=== PATIENT | female | born 1990 | race Caucasian/White ===

== ENCOUNTER 2017-01-29 19:00 | Emergency (ER) | payer OTHER ==
[2017-01-29 19:06] VITALS: BP 140/70; PULSE 78; RESP 16; TEMP 98.4; O2SAT 98
--- NOTE | 2017-01-29 19:43 | ED PDOC ---
HPI: Back Time Seen by Provider: 01/29/17 19:08 Chief Complaint (Nursing): Back Pain Chief Complaint (Provider): Flank pain History Per: Patient, [employer] (#[id number]) History/Exam Limitations: no limitations Onset/Duration Of Symptoms: Days (x 1) Current Symptoms Are (Timing): Still Present Quality Of Discomfort: Stabbing Additional Complaint(s): Alexia is a 26 y/o female who presents to the ED complaining of left flank pain , since 3:30 AM this morning. Took Ibuprofen around 6AM, with some relief. About 1 hour ago, she developed nausea and her pain worsened, now described as a stabbing sensation. Denies dysuria, frequency, fever, and cough. PMD: Provider TBD Past Medical History Reviewed: Historical Data, Nursing Documentation, Vital Signs Vital Signs: Last Vital Signs Temp 98.4 F 01/29/17 19:03 Pulse 78 01/29/17 19:03 Resp 16 01/29/17 19:03 BP 140/70 01/29/17 19:03 Pulse Ox 98 01/29/17 19:03 - Medical History PMH: No Chronic Diseases - Surgical History Surgical History: No Surg Hx - Family History Family History: States: Unknown Family Hx - Home Medications Home Medications: Ambulatory Orders Medication Instructions Recorded Meclizine [Meclizine*] 25 mg PO Q8 PRN #21 tab 08/04/14 Meclizine HCl [Antivert/25] 25 mg PO TID #20 tab 05/29/15 Methylprednisolone [Medrol Dose 4 mg PO DAILY #21 mg 05/29/15 Pack (21 tabs)] Ciprofloxacin [Cipro] 500 mg PO BID #10 tab 01/29/17 Tamsulosin [Flomax] 0.4 mg PO DAILY #5 cap 01/29/17 oxyCODONE/Acetaminophen [Percocet 1 ea PO Q6H PRN #10 tab 01/29/17 5/325 mg Tab] - Allergies Allergies/Adverse Reactions: Allergies Allergy/AdvReac Type Severity Reaction Status Date / Time No Known Allergies Allergy Verified 01/29/17 19:03 Review of Systems ROS Statement: Except As Marked, All Systems Reviewed And Found Negative Respiratory: Negative for: Cough Gastrointestinal: Positive for: Nausea Musculoskeletal: Positive for: Back Pain (L flank pain) Physical Exam - Reviewed Nursing Documentation Reviewed: Yes Vital Signs Reviewed: Yes - Physical Exam Appears: Positive for: Non-toxic, No Acute Distress Head Exam: Positive for: ATRAUMATIC, NORMAL INSPECTION, NORMOCEPHALIC Skin: Positive for: Normal Color, Warm, Dry Eye Exam: Positive for: Normal appearance Neck: Positive for: Normal Respiratory: Negative for: Respiratory Distress Gastrointestinal/Abdominal: Positive for: Normal Exam, Soft. Negative for: Tenderness Back: Positive for: Normal Inspection. Negative for: L CVA Tenderness, R CVA Tenderness, Vertebral Tenderness Extremity: Positive for: Normal ROM. Negative for: Pedal Edema, Deformity Neurologic/Psych: Positive for: Alert, Oriented - Laboratory Results Result Diagrams: 01/29/17 20:19 01/29/17 20:19 - ECG O2 Sat by Pulse Oximetry: 98 (RA) Pulse Ox Interpretation: Normal Medical Decision Making Medical Decision Making: Time: 19:40 Initial Plan: --Urine dip to assess for hematuria Time: 20:00 --CMP --CBC --Urinalysis --Urine culture --Urine preg --Toradol IV --Pending CT Abd/Pelvis w/o contrast Time: 21:38 CT ABDOMEN/PELVIS: FINDINGS: Lower thorax: Heart size is normal. Lung bases are clear ABDOMEN: Liver: unremarkable Gallbladder and bile ducts: unremarkable Pancreas: unremarkable Spleen: unremarkable Adrenals: unremarkable Kidneys and ureters: There is a small nonobstructing right renal stone there are no right ureteral stones. There is obstructive uropathy on the left there is a 2 mm obstructing distal left ureteral stone. Stomach and bowel: There is a nonobstructed bowel gas pattern with normal bowel rotation. Ileocecal region is unremarkable. There is a small amount of air in normal caliber appendix. Colon is incompletely distended which limits evaluation. Appendix: See stomach and bowel PELVIS: Bladder: Bladder is almost empty. Reproductive: Uterus and adnexal structures are unremarkable. ABDOMEN and PELVIS: Intraperitoneal space: There is no free air or free fluid. Bones/joints: There are no acute osseous abnormalities. Soft tissues: unremarkable Vasculature: Vascular structures are unremarkable. Lymph nodes: There is no pathologic adenopathy. IMPRESSION: 2 mm obstructing distal left ureteral stone Additional findings as described above. Scribe Attestation: Documented by Maria L Ness, acting as a scribe for Estrella Dawson PA-C Provider Scribe Attestation: All medical record entries made by the Scribe were at my direction and personally dictated by me. I have reviewed the chart and agree that the record accurately reflects my personal performance of the history, physical exam, medical decision making, and the department course for this patient. I have also personally directed, reviewed, and agree with the discharge instructions and disposition. Disposition - Clinical Impression Clinical Impression: Kidney stone - Patient ED Disposition Is Patient to be Admitted: No Counseled Patient/Family Regarding: Diagnosis, Need For Followup, Rx Given - Disposition Referrals: Canelo Figueroa MD [Medical Doctor] - Disposition: Routine/Home Disposition Time: 21:51 Condition: GOOD Prescriptions: Ciprofloxacin [Cipro] 500 mg PO BID #10 tab oxyCODONE/Acetaminophen [Percocet 5/325 mg Tab] 1 ea PO Q6H PRN #10 tab PRN Reason: Pain, Severe (8-10) Tamsulosin [Flomax] 0.4 mg PO DAILY #5 cap Instructions: Kidney Stones (ED) Forms: Talk Local (Turkish) Print Language: KAZAKH
[2017-01-29] MEDS ORDERED: Povidone Iodine Topical 10% Sol ONE (19:51)
[2017-01-29 20:32] LABS: HEMATOCRIT 38.4 % (34.0-47.0); MEAN CELL VOLUME 84.2 fl (81.0-99.0); MEAN CORPUSCULAR HEMOGLOBIN 27.5 pg (27.0-31.0); MEAN CORPUSCULAR HGB CONC 32.6 g/dL (33.0-37.0); RED CELL DISTRIBUTION WIDTH 14.6 % (11.5-14.5); WHITE BLOOD COUNT 6.6 K/uL (4.8-10.8)
[2017-01-29 20:39] LABS: ALB/GLOB RATIO 1.3 (1.0-2.1); ALKALINE PHOSPHATASE 57 U/L (38-126); ALT/SGPT 31 U/L (9-52); AST/SGOT 22 U/L (14-36); BILIRUBIN,TOTAL 0.7 mg/dl (0.2-1.3); BLOOD UREA NITROGEN 19 mg/dl (7-17); CALCIUM 10.1 mg/dL (8.4-10.2); CARBON DIOXIDE 25 mmol/L (22-30); GFR AFRICAN-AMERICAN > 60; GLUCOSE,RANDOM 102 mg/dL (65-105); POTASSIUM 4.2 MMOL/L (3.6-5.0); SODIUM 143 mmol/l (132-148); TOTAL PROTEIN 8.4 G/DL (6.3-8.2)
[2017-01-29 20:40] LABS: RBC URINE 8 /hpf (0-3); URINE BACTERIA RARE (<OCC); URINE BILIRUBIN NEGATIVE (NEGATIVE); URINE BLOOD SMALL (NEGATIVE); URINE COLOR YELLOW (YELLOW); URINE GLUCOSE (UA) NEG (Normal); URINE KETONE NEGATIVE (NEGATIVE); URINE LEUKOCYTE ESTERASE TRACE Leu/uL (Negative); URINE PROTEIN 30 mg/dL (NEGATIVE); URINE UROBILINOGEN 0.2-1.0 mg/dL (0.2-1.0)
[2017-01-29 20:41] LABS: CHLORIDE 106 mmol/L (98-107)
[2017-01-29 20:42] LABS: WBC URINE 12 /hpf (0-5)
--- NOTE | 2017-01-29 21:39 | CT ---
EXAM: CT Abdomen and Pelvis Without Intravenous Contrast EXAM DATE/TIME: 01/29/2017 8:01 PM CLINICAL HISTORY: 26 years old, female; Pain; Abdominal pain; Flank; Left; Additional info: Left flank pain, hematuria TECHNIQUE: Axial computed tomography images of the abdomen and pelvis without intravenous contrast. All CT scans at this facility use one or more dose reduction techniques, viz.: automated exposure control; ma/kV adjustment per patient size (including targeted exams where dose is matched to indication; i.e. head); or iterative reconstruction technique. Coronal and sagittal reformatted images were created and reviewed. COMPARISON: There are no prior studies for comparison. FINDINGS: Lower thorax: Heart size is normal. Lung bases are clear ABDOMEN: Liver: unremarkable Gallbladder and bile ducts: unremarkable Pancreas: unremarkable Spleen: unremarkable Adrenals: unremarkable Kidneys and ureters: There is a small nonobstructing right renal stone there are no right ureteral stones. There is obstructive uropathy on the left there is a 2 mm obstructing distal left ureteral stone. Stomach and bowel: There is a nonobstructed bowel gas pattern with normal bowel rotation. Ileocecal region is unremarkable. There is a small amount of air in normal caliber appendix. Colon is incompletely distended which limits evaluation. Appendix: See stomach and bowel PELVIS: Bladder: Bladder is almost empty. Reproductive: Uterus and adnexal structures are unremarkable. ABDOMEN and PELVIS: Intraperitoneal space: There is no free air or free fluid. Bones/joints: There are no acute osseous abnormalities. Soft tissues: unremarkable Vasculature: Vascular structures are unremarkable. Lymph nodes: There is no pathologic adenopathy. IMPRESSION: 2 mm obstructing distal left ureteral stone Additional findings as described above.
[2017-01-29] MEDS ORDERED: Oxycodone/Acetaminophen 5/325 mg Tab PO STA (21:47)
[2017-01-29] MEDS ORDERED: Oxycodone/Acetaminophen 5/325 mg Tab ONE (21:51)
== END 2017-01-29 22:15 | disposition home or self-care (01) ==
LOC: H.ER 19:00
DX: N20.1 Calculus of ureter (principal)
CPT/HCPCS: 74176; 80053; 81003; 81025; 85027; 87086; 96374; 99282; J1885